=== PATIENT | female | born 1945 | race Hispanic/Latino ===

== ENCOUNTER 2016-10-31 12:00 | Outpatient (CLI) | payer OTHER, MEDICARE ==
--- NOTE | 2016-10-31 14:22 | XRay Report ---
THORACIC SPINE, 3 VIEWS: HISTORY: Back pain. FINDINGS: Mild osteopenia is evident. There is moderate multilevel degenerative disc disease. No evidence for compression deformity, bone lesion or posterior rib fracture. No paraspinal hematoma. IMPRESSION: Osteopenia. Thoracic spondylosis. No acute process is appreciated.
== END 2016-10-31 12:01 | disposition home or self-care (01) ==
LOC: SPVIMAG 12:00
PROVIDERS: ATTEND Internal Medicine Hematology & Oncology
DX: M47.894 Other spondylosis, thoracic region (principal); M85.88 Other specified disorders of bone density and structure, other site; R07.81 Pleurodynia
CPT/HCPCS: 72074